=== PATIENT | female | born 1995 | race Caucasian/White ===

== ENCOUNTER 2020-06-05 12:00 | Outpatient (REF) | payer BC, SELFPAY ==
--- NOTE | 2020-06-05 13:30 | PAPFT_PTH ---
PATIENT: Sarah Patten LOC: [facility] U#:[id number] AGE/SX: 24/F ROOM: RE06/05/[address]: Sandie Perez NP : 1995 BED: DIS: 06/05/2020 SPEC #: [id number] RECD: 06/06/20 13:03 STATUS: TREVOR REGurinder #: [id number] TORI: 06/05/20 13:[address]: Ana REDD,Sandie DEPT: [facility] Cytology RECD BY: Dolores Chong ENTERED: 06/06/20 13:03 SP TYPE: PAPFT OTHR DR: Corazon Martel APRN Tissues: 1 - CX/ENDOCX FOR PAP SMEARS Procedures: PAP THIN PREP/[facility] Screening Comments: [id number]
== END 2020-06-05 12:01 | disposition home or self-care (01) ==
LOC: LBN 12:00
PROVIDERS: Visit Provider Nurse Practitioner Women's Health
DX: Z12.4 Encounter for screening for malignant neoplasm of cervix (principal)
CPT/HCPCS: 88142

== ENCOUNTER 2021-08-10 01:10 | Outpatient (CLI) | payer BC, SELFPAY ==
[2021-08-10 13:11] LABS: ALT 76 U/L (14-59); AST 173 U/L (15-37); Albumin 4.5 g/dL (3.4-5.0); Alkaline Phosphatase 60 U/L (46-116); Anion Gap 11.5 mmol/L (3-11); BUN 12 mg/dL (7-18); Bilirubin, Total 0.6 mg/dL (0.2-1.0); CO2 26.5 mmol/L (21.0-32.0); CREATININE 0.8 mg/dL (0.55-1.02); Calcium 9.2 mg/dL (8.5-10.1); Calculated LDL 94 mg/dL (<100); Chloride 104 mmol/L (98-107); Cholesterol 179 mg/dL (<200); Glucose 75 mg/dL (74-106); HDL Cholesterol 77 mg/dL (40-60); Potassium 3.9 mmol/L (3.5-5.1); Sodium 142 mmol/L (136-145); Total Protein 7.5 g/dL (6.4-8.2); Triglyceride 40 mg/dL (<150)
== END 2021-08-10 01:11 | disposition home or self-care (01) ==
LOC: LOS 01:10
DX: Z00.00 Encounter for general adult medical examination without abnormal findings (principal); Z13.220 Encounter for screening for lipoid disorders
CPT/HCPCS: 36415; 80053; 80061

== ENCOUNTER 2021-12-05 03:24 | Outpatient (CLI) | payer BC, SELFPAY ==
[2021-12-05 12:23] LABS: ALT 22 U/L (14-59); AST 19 U/L (15-37); Albumin 4.3 g/dL (3.4-5.0); Alkaline Phosphatase 50 U/L (46-116); Bilirubin, Direct 0.1 mg/dL (0.0-0.2); Bilirubin, Total 0.4 mg/dL (0.2-1.0); Total Protein 7.7 g/dL (6.4-8.2)
[2021-12-06 09:52] LABS: Hepatitis A Antibody IgM Negative (Negative); Hepatitis B Core Antibody Negative (Negative); Hepatitis B surface Ag Negative (Negative); Hepatitis C Ab w Rflx HCV PCR Negative (Negative)
== END 2021-12-05 03:25 | disposition home or self-care (01) ==
LOC: LOS 03:24
DX: R74.01 Elevation of levels of liver transaminase levels (principal)
CPT/HCPCS: 36415; 80076; 86704; 86709; 86803; 87340

== ENCOUNTER 2024-06-16 09:59 | Outpatient (REF) | payer BC, SELFPAY ==
--- NOTE | 2024-06-16 09:45 | PAPFT_PTH ---
PATIENT: Sarah Patten LOC: [facility] U#:[id number] AGE/SX: 28/F ROOM: RE06/16/[address]: Sandie Perez NP : 1995 BED: DIS: 06/16/2024 SPEC #: [id number] RECD: 06/16/24 12:51 STATUS: TREVOR REQ #: [id number] TORI: 06/16/24 09:[address]: Sandie Perez NP DEPT: [facility] Cytology RECD BY: Dolores Chong ENTERED: 06/16/24 12:51 SP TYPE: PAPFT OTHR DR: Jn Blevins DNP Tissues: 1 - CX/ENDOCX FOR PAP SMEARS Procedures: PAP THIN PREP/[facility] Screening HPV DNA PROBE Comments: [id number] (HPV 16 & 18/45)
== END 2024-06-16 10:00 | disposition home or self-care (01) ==
LOC: LBN 09:59
PROVIDERS: PCP Nurse Practitioner Family; Visit Provider Nurse Practitioner Women's Health
DX: Z12.4 Encounter for screening for malignant neoplasm of cervix (principal)
CPT/HCPCS: 88142; 87624

== ENCOUNTER 2024-09-17 01:03 | Outpatient (CLI) | payer BC, SELFPAY ==
[2024-09-17 13:48] LABS: ALT 19 U/L (14-59); AST 22 U/L (15-37); Albumin 3.9 g/dL (3.4-5.0); Alkaline Phosphatase 52 U/L (46-116); Anion Gap 11.3 mmol/L (3-11); BUN 11 mg/dL (7-18); Bilirubin, Total 0.4 mg/dL (0.2-1.0); CO2 23.7 mmol/L (21.0-32.0); Calcium 8.8 mg/dL (8.5-10.1); Chloride 104 mmol/L (98-107); Estimated GFR 88.20 (mL/min/1.73m2); Glucose 83 mg/dL (74-106); Potassium 3.4 mmol/L (3.5-5.1); Sodium 139 mmol/L (136-145); Total Protein 7.2 g/dL (6.4-8.2)
== END 2024-09-17 01:04 | disposition home or self-care (01) ==
LOC: LBO 01:03
PROVIDERS: PCP Nurse Practitioner Family; Visit Provider Nurse Practitioner Family
DX: R74.01 Elevation of levels of liver transaminase levels (principal)
CPT/HCPCS: 36415; 80053